=== PATIENT | female | born 1960 ===

== ENCOUNTER 2020-01-16 18:41 | Inpatient (IN) ==
[2020-01-17] MEDS ORDERED: guaiFENesin/DM ER 600-30 MG TABLET PO PRN (01:05)
[2020-01-17] MEDS ORDERED: hydrALAZINE 20 MG/1 ML VIAL IV PRN (01:05)
[2020-01-17] MEDS ORDERED: ALBUTEROL/IPRATROPIUM 3 ML NEB RESP TX PRN (01:05)
[2020-01-17] MEDS ORDERED: ACETAMINOPHEN 325 MG TABLET PO PRN (01:05)
[2020-01-17] MEDS ORDERED: diphenhydrAMINE CAP 25 MG CAPSULE PO PRN (01:05)
[2020-01-17] MEDS ORDERED: NICOTINE 21 MG/24 HR PATCH TRANSDERM PRN (01:05)
[2020-01-17] MEDS ORDERED: ALUMINUM/MAGNES/SIMETH MAX STR 30 ML UDCUP PO PRN (01:05)
[2020-01-17] MEDS ORDERED: ONDANSETRON 4 MG/2 ML VIAL IV PRN (01:05)
[2020-01-17 02:08] LABS: Basophils % 0.3 % (0.0-0.8); Eosinophils # 0.1 10*3/uL (0.0-0.87); Eosinophils % 1.7 % (0.00-10.9); Hematocrit 38.3 VOL% (35.7-47.0); Hemoglobin 11.9 GM/DL (12.0-16.0); Immature Granulocytes % 0.8 %; Immature Granulocytes Absolute 0.06 #; Lymphocytes # 1.5 10*3/uL (1.4-4.0); Lymphocytes % 18.7 % (21.3-54.2); Mean Corpuscular HGB Conc 31.1 GM/DL (32-36); Mean Corpuscular Volume 95.3 FL (87-102); Mean Platelet Volume 9.9 FL (9.6-12.0); Neutrophils % 67.5 % (38.7-73.9); Platelet Count 235 T/CUMM (130-400); Red Blood Count 4.02 MC/CUMM (3.8-5.5); Red Cell Distribution Width 14.1 % (9.3-17.3); White Blood Count 7.7 T/CUMM (4-12)
[2020-01-17 02:47] LABS: Albumin 3.5 G/DL (3.4-5.0); Bilirubin,Total 0.4 MG/DL (0.2-1.0); Calcium 8.8 MG/DL (8.5-10.1); Osmolality,Calculated 276.5 MOS/KG (273-304); Total Protein 7.7 G/DL (6.4-8.3)
[2020-01-17] MEDS: PHENYTOIN 100 MG/2 ML VIAL IV SCH ×3 (06:54→21:35)
[2020-01-17 07:26] LABS: Urine Color Yellow (Yellow)
[2020-01-17 07:27] LABS: Apearance,Urine Slightly Hazy (Clear); Glucose,Urine (UA) Negative (Negative); Ketones,Urine Trace mg/dL (Negative); Nitrite,Urine Negative (Negative); Protein,Urine Negative
[2020-01-17 07:28] LABS: Bilirubin,Urine Negative (Negative); Blood, Urine Moderate mg/dL (Negative); RBC,Urine Trace /HPF (0-4); Urine Urobilinogen < 2.0 EU/DL (0.2-1.0); WBC,Urine Occasional /HPF (0-6)
[2020-01-17 07:29] LABS: Bacteria,Urine 3+ /HPF (Few); Squamous Epithelial Cell,Urine Moderate /HPF (0-10)
[2020-01-17] MEDS: POTASSIUM CHLORIDE 20 MEQ TABLET PO SCH ×2 (10:09→15:15)
[2020-01-18] MEDS ORDERED: HALOPERIDOL 5 MG/ML AMP IM ONE (02:31)
[2020-01-18] MEDS ORDERED: OLANZapine 5 MG TABLET PO ONE (03:56)
[2020-01-18 04:42] LABS: Calcium 8.7 MG/DL (8.5-10.1); Osmolality,Calculated 280.4 MOS/KG (273-304)
[2020-01-18] MEDS: PHENYTOIN 100 MG/2 ML VIAL IV SCH ×3 (06:03→23:22)
[2020-01-18] MEDS ORDERED: LORazepam 2 MG/1 ML VIAL ONE (09:12)
[2020-01-18] MEDS ORDERED: LORazepam 1 MG TABLET PO PRN (09:35)
[2020-01-18] MEDS ORDERED: LORazepam 2 MG/1 ML VIAL IV PRN (09:41)
[2020-01-18] MEDS ORDERED: LORazepam 2 MG/1 ML VIAL IV ONE (10:00)
[2020-01-18] MEDS ORDERED: LACOSAMIDE INJ 150 MG in SODIUM CHLORIDE 0.9% 50 ML IV ONE (10:00)
[2020-01-18] MEDS: RIFAXIMIN 550 MG TABLET PO SCH ×2 (10:40→21:22)
[2020-01-18] MEDS: ARIPiprazole 5 MG TABLET PO SCH (10:40)
[2020-01-18] MEDS: FUROSEMIDE 20 MG TABLET PO SCH (10:40)
[2020-01-18] MEDS: cefTRIAXone 1,000 MG in SYRINGE 1 EACH IV SCH (10:40)
[2020-01-18] MEDS: ESCITALOPRAM 10 MG TABLET PO SCH (10:40)
[2020-01-18] MEDS: POTASSIUM CHLORIDE 20 MEQ PACK PO SCH ×2 (14:32→21:23)
[2020-01-18] MEDS: LACTULOSE 20 GM/30 ML UDCUP PO SCH ×2 (14:32→21:23)
[2020-01-18] MEDS: LORazepam 1 MG TABLET PO SCH (21:22)
[2020-01-18] MEDS: risperiDONE 1 MG TABLET PO SCH (21:22)
[2020-01-18] MEDS: LATANOPROST 0.005% OPH SOLN 2.5 ML BOTTLE BOTH EYES SCH (21:23)
[2020-01-18] MEDS: LACOSAMIDE INJ 200 MG in SODIUM CHLORIDE 0.9% 50 ML IV SCH (21:23)
[2020-01-18] MEDS: AZITHROMYCIN INJ 500 MG in SODIUM CHLORIDE 0.9% 250 ML IV SCH (21:24)
[2020-01-19 05:01] LABS: Basophils % 0.5 % (0.0-0.8); Eosinophils # 0.2 10*3/uL (0.0-0.87); Eosinophils % 3.4 % (0.00-10.9); Hematocrit 37.6 VOL% (35.7-47.0); Hemoglobin 11.8 GM/DL (12.0-16.0); Immature Granulocytes % 0.8 %; Immature Granulocytes Absolute 0.05 #; Lymphocytes # 1.5 10*3/uL (1.4-4.0); Lymphocytes % 23.3 % (21.3-54.2); Mean Corpuscular HGB Conc 31.4 GM/DL (32-36); Mean Corpuscular Volume 93.8 FL (87-102); Monocytes % 10.9 % (1.7-12.7); Neutrophils % 61.1 % (38.7-73.9); Platelet Count 220 T/CUMM (130-400); Red Blood Count 4.01 MC/CUMM (3.8-5.5); Red Cell Distribution Width 14.3 % (9.3-17.3); White Blood Count 6.5 T/CUMM (4-12)
[2020-01-19 05:29] LABS: Albumin 3.3 G/DL (3.4-5.0); Bilirubin,Total 0.9 MG/DL (0.2-1.0); Calcium 8.2 MG/DL (8.5-10.1); Osmolality,Calculated 280.3 MOS/KG (273-304); Total Protein 7.4 G/DL (6.4-8.3)
[2020-01-19] MEDS: PHENYTOIN 100 MG/2 ML VIAL IV SCH ×3 (06:00→21:11)
[2020-01-19] MEDS: ASPIRIN EC 81 MG TABLET PO SCH (09:45)
[2020-01-19] MEDS: ESCITALOPRAM 10 MG TABLET PO SCH (09:45)
[2020-01-19] MEDS: LORazepam 1 MG TABLET PO SCH ×2 (09:45→20:54)
[2020-01-19] MEDS: FOLIC ACID 1 MG TABLET PO SCH (09:45)
[2020-01-19] MEDS: FUROSEMIDE 20 MG TABLET PO SCH (09:45)
[2020-01-19] MEDS: RIFAXIMIN 550 MG TABLET PO SCH ×2 (09:45→20:54)
[2020-01-19] MEDS: ARIPiprazole 5 MG TABLET PO SCH (09:45)
[2020-01-19] MEDS: LACTULOSE 20 GM/30 ML UDCUP PO SCH ×3 (09:45→20:54)
[2020-01-19] MEDS: POTASSIUM CHLORIDE 20 MEQ PACK PO SCH ×3 (09:46→20:54)
[2020-01-19] MEDS: cefTRIAXone 1,000 MG in SYRINGE 1 EACH IV SCH (10:01)
[2020-01-19] MEDS: LACOSAMIDE INJ 200 MG in SODIUM CHLORIDE 0.9% 50 ML IV SCH ×2 (11:59→22:26)
[2020-01-19] MEDS: ENOXAPARIN 40 MG/0.4 ML SYRINGE SUBCUT SCH (15:18)
[2020-01-19] MEDS: risperiDONE 1 MG TABLET PO SCH (20:54)
[2020-01-19] MEDS: LATANOPROST 0.005% OPH SOLN 2.5 ML BOTTLE BOTH EYES SCH (20:54)
[2020-01-19] MEDS: AZITHROMYCIN INJ 500 MG in SODIUM CHLORIDE 0.9% 250 ML IV SCH (20:55)
[2020-01-20 05:04] LABS: Basophils % 0.5 % (0.0-0.8); Eosinophils # 0.3 10*3/uL (0.0-0.87); Hematocrit 36.4 VOL% (35.7-47.0); Hemoglobin 11.3 GM/DL (12.0-16.0); Immature Granulocytes % 0.5 %; Immature Granulocytes Absolute 0.03 #; Lymphocytes # 1.4 10*3/uL (1.4-4.0); Lymphocytes % 22.4 % (21.3-54.2); Mean Corpuscular Volume 96.3 FL (87-102); Mean Platelet Volume 11.9 FL (9.6-12.0); Monocytes % 10.5 % (1.7-12.7); Neutrophils % 61.1 % (38.7-73.9); Red Blood Count 3.78 MC/CUMM (3.8-5.5); Red Cell Distribution Width 14.3 % (9.3-17.3)
[2020-01-20 05:09] LABS: Platelet Count 159 T/CUMM (130-400)
[2020-01-20 05:28] LABS: Macrocytosis Slight; Ovalocytes Slight; Platelet Estimate Adequate
[2020-01-20 05:50] LABS: Calcium 8.5 MG/DL (8.5-10.1); Osmolality,Calculated 277.4 MOS/KG (273-304)
[2020-01-20] MEDS: PHENYTOIN 100 MG/2 ML VIAL IV SCH ×3 (06:01→22:13)
[2020-01-20] MEDS: RIFAXIMIN 550 MG TABLET PO SCH ×2 (09:26→20:29)
[2020-01-20] MEDS: POTASSIUM CHLORIDE 20 MEQ PACK PO SCH ×3 (09:26→20:29)
[2020-01-20] MEDS: ESCITALOPRAM 10 MG TABLET PO SCH (09:26)
[2020-01-20] MEDS: FOLIC ACID 1 MG TABLET PO SCH (09:27)
[2020-01-20] MEDS: LORazepam 1 MG TABLET PO SCH ×2 (09:27→20:29)
[2020-01-20] MEDS: ARIPiprazole 5 MG TABLET PO SCH (09:27)
[2020-01-20] MEDS: FUROSEMIDE 20 MG TABLET PO SCH (09:27)
[2020-01-20] MEDS: ASPIRIN EC 81 MG TABLET PO SCH (09:27)
[2020-01-20] MEDS: LACTULOSE 20 GM/30 ML UDCUP PO SCH ×3 (09:27→20:28)
[2020-01-20] MEDS: LACOSAMIDE INJ 200 MG in SODIUM CHLORIDE 0.9% 50 ML IV SCH ×2 (09:35→22:12)
[2020-01-20] MEDS: cefTRIAXone 1,000 MG in SYRINGE 1 EACH IV SCH (11:57)
[2020-01-20] MEDS: ENOXAPARIN 40 MG/0.4 ML SYRINGE SUBCUT SCH (14:48)
[2020-01-20] MEDS: risperiDONE 1 MG TABLET PO SCH (20:29)
[2020-01-21] MEDS: AZITHROMYCIN INJ 500 MG in SODIUM CHLORIDE 0.9% 250 ML IV SCH (00:38)
[2020-01-21] MEDS: PHENYTOIN 100 MG/2 ML VIAL IV SCH (06:30)
[2020-01-21] MEDS: LATANOPROST 0.005% OPH SOLN 2.5 ML BOTTLE BOTH EYES SCH (06:36)
[2020-01-21 08:20] VITALS: BP 143/80
[2020-01-21] MEDS: LORazepam 1 MG TABLET PO SCH (09:09)
[2020-01-21] MEDS: LACOSAMIDE INJ 200 MG in SODIUM CHLORIDE 0.9% 50 ML IV SCH (09:10)
[2020-01-21] MEDS: POTASSIUM CHLORIDE 20 MEQ PACK PO SCH (09:10)
[2020-01-21] MEDS: LACTULOSE 20 GM/30 ML UDCUP PO SCH (09:10)
[2020-01-21] MEDS: RIFAXIMIN 550 MG TABLET PO SCH (09:11)
[2020-01-21] MEDS: ASPIRIN EC 81 MG TABLET PO SCH (09:11)
[2020-01-21] MEDS: ESCITALOPRAM 10 MG TABLET PO SCH (09:11)
[2020-01-21] MEDS: ARIPiprazole 5 MG TABLET PO SCH (09:11)
[2020-01-21] MEDS: FUROSEMIDE 20 MG TABLET PO SCH (09:12)
[2020-01-21] MEDS: FOLIC ACID 1 MG TABLET PO SCH (09:12)
[2020-01-21] MEDS: cefTRIAXone 1,000 MG in SYRINGE 1 EACH IV SCH (12:48)
== END 2020-01-21 15:36 | DRG 100 ==
LOC: N.2E → SUATTDRO 23:14 → N.CC 01-18 17:24 → N.4E 01-20 15:45
PROVIDERS: ADMIT Internal Medicine; ATTEND Family Medicine